=== PATIENT | male | born 1985 | race Asian ===

== ENCOUNTER 2023-11-03 14:59 | Emergency (ER) | payer OTHER, BC ==
[~2023-11-03] VITALS: Ht 180.3 cm; Wt 94.3 kg
[2023-11-03 15:06] VITALS: BP_SYST 146; PULSE 104; RESP 16; TEMP 98.3; O2SAT 94
[2023-11-03 15:34] LABS: BASOPHILS % (AUTO) 0.2 % (0.0-2.0); EOSINOPHILS % (AUTO) 0.2 % (0.0-4.0); HEMATOCRIT 47.1 % (36-54); HEMOGLOBIN 16.6 g/dL (14.0-18.0); LYMPHOCYTES % (AUTO) 19.2 % (20.5-51.5); MEAN CORPUSCULAR HEMOGLOBIN 32 pg (27-31); MEAN CORPUSCULAR HGB CONC 35 % (32-36); MEAN CORPUSCULAR VOLUME 91 fL (79.0-98.0); MONOCYTES % (AUTO) 9.6 % (1.7-9.3); NEUTROPHILS # (AUTO) 7.3 K/uL (1.8-7.7); NEUTROPHILS % (AUTO) 70.8 % (40.0-70.0); PLATELET COUNT (AUTO) 184 K/uL (130-430); RED BLOOD CELL COUNT(AUTO) 5.15 MIL/uL (4.2-6.2); RED CELL DISTRIBUTION WIDTH 13.2 % (9.0-15.0); WHITE BLOOD COUNT (AUTO) 10.3 K/uL (4.8-10.8)
[2023-11-03 15:53] LABS: ALBUMIN 4.7 g/dL (3.4-4.8); CREATININE 1.1 mg/dL (0.55-1.30); TOTAL BILIRUBIN 1.3 mg/dL (0.0-1.0); TOTAL PROTEIN, SERUM 8.7 g/dL (6.4-8.3)
[2023-11-03 15:59] LABS: INR 2.2 (0.80-1.20)
[2023-11-03 16:00] LABS: PROTHROMBIN TIME 23.1 SECS (9.5-12.5)
[2023-11-03 16:01] LABS: BILIRUBIN,DIRECT 0.3 mg/dL (0.0-0.3)
[2023-11-03 16:39] LABS: CLARITY/URINE CLEAR (CLEAR); COLOR,URINE YELLOW (YELLOW); GLUCOSE,URINE NEGATIVE (NEGATIVE); KETONES,URINE 2+ (NEGATIVE); LEUKOCYTE ESTERASE ,URINE NEGATIVE (NEGATIVE); NITRITE, URINE NEGATIVE (NEGATIVE); PROTEIN URINE TRACE (NEGATIVE); UROBILINOGEN,URINE 0.2 (0.2-1.0)
[2023-11-03 16:48] LABS: BLOOD, URINE TRACE (NEGATIVE)
[2023-11-03 16:50] LABS: BACTERIA,URINE RARE /HPF (None Seen); BILIRUBIN,URINE 1+ (NEGATIVE); MUCUS,URINE 2+ /LPF (None Seen); RBC,URINE 0-3 /HPF (0-3); WBC,URINE 0-3 /HPF (0-3)
[2023-11-03] MEDS ORDERED: IBUP-1971 PO (16:55)
[2023-11-03] MEDS ORDERED: TRAM50TA2 PO (16:55)
[2023-11-03 17:02] VITALS: BP_SYST 146; PULSE 104; RESP 16; TEMP 98.3; O2SAT 94
== END 2023-11-03 17:02 | disposition home or self-care (01) ==
LOC: SED 14:59
DX: S30.1XXA Contusion of abdominal wall, initial encounter (principal); R07.89 Other chest pain; Z79.899 Other long term (current) drug therapy; V89.2XXA Person injured in unspecified motor-vehicle accident, traffic, initial encounter; Y93.89 Activity, other specified; Y92.89 Other specified places as the place of occurrence of the external cause; Y99.8 Other external cause status
CPT/HCPCS: 36415; 71045; 80048; 80076; 81000; 81001; 81015; 82150; 83605; 83690; 85025; 85610; 85730; 99284